=== PATIENT | male | born 1985 | race Caucasian/White ===

== ENCOUNTER → 2016-11-16 | Outpatient (CLI) | payer BC ==
--- NOTE | 2016-11-16 19:59 | Diagnostic Imaging Report ---
INDICATION: Chest pain, post injury on 11/11/2016. TECHNIQUE: Single-view chest at 4:42 p.m. CORRELATION STUDY: None. FINDINGS: The heart size, mediastinal configuration and pulmonary vascularity are within normal limits. The lungs are clear with no consolidating infiltrate. There is no significant effusion or pneumothorax. There are relatively nondisplaced to minimally displaced lateral at least right-sided seventh, eighth, and likely ninth rib fractures. IMPRESSION: 1. Nondisplaced to minimally displaced lateral at least seventh, eighth, and likely ninth right-sided rib fractures. Dictated by: Dictated on workstation # [id number]
== END ==
LOC: RAD 16:16
PROVIDERS: ATTEND Family Medicine
DX: R07.89 Other chest pain (principal); S22.41XA Multiple fractures of ribs, right side, initial encounter for closed fracture; X58.XXXA Exposure to other specified factors, initial encounter
CPT/HCPCS: 71010